=== PATIENT | male | born 1980 | race Caucasian/White ===

== ENCOUNTER 2016-10-09 07:27 | Emergency (ER) | payer BC ==
[~2016-10-09] VITALS: Ht 182.9 cm; Wt 101.3 kg
[~2016-10-09 07:27] MED LIST: ALBUAER19 INH
[2016-10-09 07:30] VITALS: BP 154/100; PULSE 89; TEMP 36.7; O2SAT 97; Ht 182.9 cm; Wt 101.3 kg
[2016-10-09] MEDS ORDERED: METRONIDAZOLE 250 MG TAB PO STA (07:55)
[2016-10-09] MEDS ORDERED: DOXYCYCLINE HYCLATE 100 MG CAP PO STA (07:55)
[2016-10-09] MEDS ORDERED: DOXY100C PO (07:59)
[2016-10-09] MEDS ORDERED: METR-162 PO (07:59)
--- NOTE | 2016-10-09 08:03 | EMERGENCY ROOM VISIT NOTE ---
History First contact with patient: 07:34 Chief Complaint: BITE Stated Complaint: DOG BITE History of Present Illness The patient is a 35 year old male who presents to the Emergency Room with complaints of dog bite injury to his right thigh. The patient states that he was walking outside, and his neighbors alphonse came over, and bit him. The dog is a rescue animal, and has been known by his neighbor for a few months. Patient believes the animal is up-to-date on his rabies, but he is unsure. The patient is up-to-date on his tetanus. The patient does not have additional complaints. Review of Systems More than 10 systems were reviewed and otherwise negative with the exception of history of present illness. Past Medical/Surgical History Medical Problems: (1) Asthma Family History Hypertension Social History Smoking Status: Never Smoker Alcohol Use: none Drug Use: none Marital Status: in relationship Housing Status: lives with significant other Occupation Status: employed Current/Historical Medications Scheduled Doxycycline Hyclate (Vibramycin), 100 MG PO BID Metronidazole (Flagyl), 1 TAB PO TID Scheduled PRN Albuterol Inhaler (Ventolin Inhaler), 2 PUFFS INH QID PRN for SOB/Wheezing Allergies Coded Allergies: Penicillins (Unverified Allergy, Mild, 05/27/15) Physical Exam Vital Signs Date Time Temp Pulse Resp B/P Pulse Ox O2 Delivery O2 Flow Rate FiO2 10/09/16 07:30 36.7 89 18 154/100 97 Room Air Physical Exam VITALS: Vitals are noted on the nurse's note and reviewed by myself. Vital signs stable. GENERAL: Well-developed, well-nourished, white male, who is in no acute distress and resting comfortably. Patient is cooperative with the examination. HEAD: Normocephalic atraumatic. HEART: Regular rate and rhythm without murmurs gallops or rubs. LUNGS: Clear to auscultation bilaterally without wheezes, rales or rhonchi. No retractions or accessory muscle use. SKIN: The skin was with obvious puncture wound to his right lateral proximal thigh. This is consistent with a dog bite. The wound is without significant laceration or bleeding. Medical Decision & Procedures ED Course Physical exam and history were performed. Nursing notes and EMR were reviewed. Patient appears to have suffered a dog bite to his right thigh. The patient is allergic to penicillin and will be started on doxycycline and Flagyl. His first doses were provided here in the department. I discussed the rabies immunization series with the patient, who believes that he will be able to confirm the animal has its rabies shots. If the patient is not able to do that he may quarantine the animal. He is unable to do either of these things he should return to the emergency department immediately to begin rabies immunization series. Dog bite form was completed. The patient was otherwise invited back to the ER with any new, worsening, or concerning symptoms. The chart was completed utilizing [email or web address] Speech Voice Recognition Software. Grammatical errors, random word insertions, pronoun errors, and incomplete sentences are an occasional consequence of this system due to software limitations, ambient noise, and hardware issues. Any formal questions or concerns about the content, text, or information contained within the body of this dictation should be directly addressed to the provider for clarification. . Medical Decision Differential diagnosis includes, but is not limited to: Laceration, abrasion, puncture wound, animal bite, cellulitis, abscess, and others Impression Primary Impression: Dog bite Departure Information Dispostion Home / Self-Care Condition GOOD Prescriptions Metronidazole (FLAGYL) 500 Mg Tab 1 TAB PO TID for 10 Days, #30 TAB Prov: Cleve Duque PA-C 10/09/16 Doxycycline Hyclate (VIBRAMYCIN) 100 Mg Cap 100 MG PO BID for 10 Days, #20 CAP Prov: Cleve Duque PA-C 10/09/16 Referrals No Doctor, Assigned (PCP) Forms HOME CARE DOCUMENTATION FORM, IMPORTANT VISIT INFORMATION Patient Instructions A Signature Page, [facility] Additional Instructions You were seen and evaluated today on an emergency basis only. This is not a substitute for, or an effort to provide, complete comprehensive medical care. It is not possible to recognize and treat all injuries or illnesses in a single emergency department visit. For this reason it is recommended that you followup with your primary care physician for any ongoing or persistent symptoms. Doxycycline twice a day for 10 days. Avoid exposure to the sun/UV light while on this medication or use frequent application of SPF 50 or higher due to increased sensitivity to UV rays and high risk for severe epsana. Metronidazole(Flagyl) 500mg: Take one pill three times daily for 10 days for your infection. DO NOT drink alcohol or take alcohol containing products with this medication. Any medication can cause an allergic reaction, stop the pills immediately and return to the ER for rash, hives, breathing difficulties, or swelling. If you are unable to acquire the immunization records of the dog, you may be able to quarantine it for 10 days. If you are unable to do either of these 2 things it is recommended you return to the emergency department to begin the rabies series. You are welcome to return to the emergency department anytime with new, worsening, or concerning symptoms.
== END 2016-10-09 08:24 | disposition home or self-care (01) ==
LOC: C.EDB 07:28
DX: S71.151A Open bite, right thigh, initial encounter (principal); J45.909 Unspecified asthma, uncomplicated; Z82.49 Family history of ischemic heart disease and other diseases of the circulatory system; W54.0XXA Bitten by dog, initial encounter; Y93.89 Activity, other specified; Y92.414 Local residential or business street as the place of occurrence of the external cause; Y99.8 Other external cause status